=== PATIENT | male | born 1985 ===

== ENCOUNTER 2020-11-27 22:51 | Emergency (ER) | payer OTHER ==
[~2020-11-27] VITALS: Ht 182.9 cm; Wt 81.8 kg
[2020-11-28] MEDS ORDERED: KETOROLAC TROMETHAMINE 30 MG/ML VIAL IM ONE (00:30)
[2020-11-28] MEDS ORDERED: OxyCODONE HCL/ACETAMINOPHEN 10-325 MG TABLET PO ONE (02:00)
[2020-11-28 03:45] VITALS: BP 116/70
== END 2020-11-28 04:13 | disposition home or self-care (01) ==
LOC: EMS 22:53
DX: S82.841A Displaced bimalleolar fracture of right lower leg, initial encounter for closed fracture (principal); X58.XXXA Exposure to other specified factors, initial encounter; Y93.89 Activity, other specified; Y92.89 Other specified places as the place of occurrence of the external cause; Y99.8 Other external cause status
CPT/HCPCS: 29515; 73564; 73590; 73610; 73630; 96372; 99284; J1885